=== PATIENT | male | born 1940 | race Caucasian/White ===

== ENCOUNTER 2022-01-07 12:00 | Day surgery (SDC) | payer OTHER ==
[2022-01-07 10:44] LABS: EOSINOPHILS # (AUTO) 0.2 X10'3 (0-0.9); LYMPHOCYTES # (AUTO) 1.1 X10'3 (1.1-4.8); LYMPHOCYTES % (AUTO) 22.4 % (21-51); MEAN CORPUSCULAR HEMOGLOBIN 28.6 PG (27.0-31.0); MEAN CORPUSCULAR HGB CONC 32.3 g/dL (33.0-36.5); MEAN CORPUSCULAR VOLUME 88.3 FL (78-98); MEAN PLATELET VOLUME 7.5 FL (7.4-10.4); MONOCYTES # (AUTO) 0.4 X10'3 (0-0.9); MONOCYTES % (AUTO) 8.4 % (2-12); NEUTROPHILS # (AUTO) 3.2 X10'3 (1.8-7.7); NEUTROPHILS % (AUTO) 65.2 % (42-75); PRE OP HEMATOCRIT 42.3 % (42.0-52.0); PRE OP HEMOGLOBIN 13.7 g/dL (14.0-17.9); PRE OP PLATELET COUNT 236 X10'3 (140-440); RED BLOOD COUNT 4.79 X10'6 (4.70-6.10); RED CELL DISTRIBUTION WIDTH 16.1 % (11.5-14.5)
[2022-01-07 10:52] LABS: ALBUMIN 3.5 G/DL (3.4-5.0); ALBUMIN/GLOBULIN RATIO 0.8 (1.1-1.5); ALKALINE PHOSPHATASE 45 IU/L (46-116); BLOOD UREA NITROGEN 16 MG/DL (7-18); BUN/CREATININE RATIO 14.5 (5.4-32.0); CHLORIDE 105 MMOL/L (99-107); PRE OP ALT 26 U/L (30-65); PRE OP ANION GAP 9 (8-16); PRE OP AST 39 U/L (10-37); PRE OP BILIRUB, TOTAL 0.5 MG/DL (0.0-1.0); PRE OP GLUCOSE 118 MG/DL (70-104); PRE OP POTASSIUM 4.7 MMOL/L (3.4-5.1); PRE OP SODIUM 141 MMOL/L (135-145); TOTAL CARBON DIOXIDE 27.4 MMOL/L (24-32); TOTAL PROTEIN 7.8 G/DL (6.4-8.2); eGFR 64 ML/MIN
[2022-01-07 10:57] LABS: HEMOGLOBIN A1C 6.6 % (4.5-6.2)
[~2022-01-07 12:00] MED LIST: AMLO2.5T2 PO; CETI10TA19 PO; GABA-534 PO; LISI20TA28 PO; METF-900 PO; ROSU40TA PO
== END 2022-01-07 23:59 | disposition home or self-care (01) ==
LOC: PRE-OP 12:00 → EDSTATUS 01-14 12:15
PROVIDERS: ATTEND Orthopaedic Surgery
DX: Z01.818 Encounter for other preprocedural examination (principal); M19.011 Primary osteoarthritis, right shoulder; E11.9 Type 2 diabetes mellitus without complications; G47.30 Sleep apnea, unspecified; I10 Essential (primary) hypertension; Z79.899 Other long term (current) drug therapy; Z87.891 Personal history of nicotine dependence; Z98.890 Other specified postprocedural states; Z79.84 Long term (current) use of oral hypoglycemic drugs
CPT/HCPCS: 36415; 80053; 83036; 85025; 86885; 86900; 86901; 87081

== ENCOUNTER 2023-09-15 09:36 | Inpatient (IN) | payer OTHER, MEDICARE ==
[2023-09-06 14:47] LABS: BASOPHILS # (AUTO) 0.1 X10'3 (0-0.2); BASOPHILS % (AUTO) 0.9 % (0-1); EOSINOPHILS # (AUTO) 0.3 X10'3 (0-0.9); EOSINOPHILS % (AUTO) 4.9 % (0-6); LYMPHOCYTES # (AUTO) 1.2 X10'3 (1.1-4.8); LYMPHOCYTES % (AUTO) 21.4 % (21-51); MEAN CORPUSCULAR HEMOGLOBIN 29.8 PG (27.0-31.0); MEAN CORPUSCULAR VOLUME 90.2 FL (78-98); MEAN PLATELET VOLUME 7.5 FL (7.4-10.4); MONOCYTES # (AUTO) 0.3 X10'3 (0-0.9); MONOCYTES % (AUTO) 6.2 % (2-12); NEUTROPHILS # (AUTO) 3.8 X10'3 (1.8-7.7); NEUTROPHILS % (AUTO) 66.6 % (42-75); PRE OP HEMOGLOBIN 14.2 g/dL (14.0-17.9); PRE OP PLATELET COUNT 222 X10'3 (140-440); PRE OP WHITE BLOOD COUNT 5.6 10'3 (4.8-10.8); RED BLOOD COUNT 4.77 X10'6 (4.70-6.10); RED CELL DISTRIBUTION WIDTH 14.8 % (11.5-14.5)
[2023-09-06 14:53] LABS: ALBUMIN 3.9 G/DL (3.4-5.0); ALBUMIN/GLOBULIN RATIO 0.9 (1.1-1.5); ALKALINE PHOSPHATASE 45 IU/L (46-116); BLOOD UREA NITROGEN 24 MG/DL (7-18); CALCIUM 9.4 MG/DL (8.5-10.1); CHLORIDE 104 MMOL/L (99-107); CREATININE 1.33 MG/DL (0.60-1.10); PRE OP ALT 32 U/L (30-65); PRE OP ANION GAP 7 (8-16); PRE OP AST 34 U/L (10-37); PRE OP BILIRUB, TOTAL 0.4 MG/DL (0.0-1.0); PRE OP GLUCOSE 144 MG/DL (70-104); PRE OP SODIUM 139 MMOL/L (135-145); TOTAL CARBON DIOXIDE 28.3 MMOL/L (24-32); TOTAL PROTEIN 8.4 G/DL (6.4-8.2); eGFR 51 ML/MIN
[2023-09-06 16:13] LABS: HEMOGLOBIN A1C 6.2 % (4.5-6.2)
[2023-09-15] VITALS (25 sets, daily range): BP systolic 122–163; BP diastolic 65–113; PULSE 49–102; RESP 12–21; TEMP 97.6–98.1; O2SAT 94–99
[~2023-09-15] VITALS: Ht 175.3 cm; Wt 86.6 kg
[2023-09-15] MEDS: gabapentin 300mg capsule PO ONE (05:30)
[2023-09-15] MEDS: cefazolin 2gm/D5W 100mL 100 ML IV ONE (05:30)
[2023-09-15] MEDS: tranexamic acid inj. 1,000 MG in normal saline IV soln 100ML IV ONE (05:30)
[2023-09-15] MEDS: ipratropium 0.5 MG/2.5ML nebule NEB SCH (09:00)
[~2023-09-15 09:36] MED LIST changes: +ACET-1025 PO; +ALBU8HFA INH; +CLOB30CR11 TOP; +CYAN500T71 PO; +DEXTROSE 15 GM of carb/4 tabs (each vial/BOTTLE has 4 tablets) PO PRN; +DICL20GE; +EZET10TA6 PO; -GABA-534 PO; +GABA-535 PO; +HYDROmorphone 1 mg/ml syringe IV PRN; +OXYB5TAB21 PO; +TIOT18CA3 INH; +[UNRECOGNIZED DRUG - OTHER]; +acetaminophen 325mg tablet PO PRN; +albuterol 2.5 MG/3 ML nebule NEB PRN; +bisacodyl 10mg suppository rectal RC PRN; +dextrose 50%-water 50ml dispensing syringe IV PRN; +diphenhydrAMINE 25mg capsule PO PRN; +famotidine 20mg tablet PO ONE; +glucagon, human recombinant 1mg kit SUBCUT PRN; +insulin Lispro (HumaLOG) vial - multi-dose SQ SCH; +magnesium hydroxide 30ml (MOM) UD suspension PO PRN; +naloxone 0.4 mg/ml inj IV PRN; +ondansetron/PF 4mg/2ml inj IV PRN
[2023-09-15] MEDS ORDERED: fentaNYL/PF 50MCG/1 ML 2ML syringe IV PRN ×2 (11:00)
[2023-09-15] MEDS ORDERED: morphine 2 MG/ML inj. syringe IV PRN (11:00)
[2023-09-15] MEDS ORDERED: ROPIVAcaine 0.2% (10 MG/5 ML) BOLUS INJECTION INTERSCALE PRN (11:00)
[2023-09-15] MEDS ORDERED: ondansetron/PF 4mg/2ml inj IV PRN (11:00)
[2023-09-15] MEDS ORDERED: hydrALAZINE 20mg/ml inj. IV PRN (11:00)
[2023-09-15] MEDS ORDERED: labetalol 20mg/4ml (5mg/ml) syringe IV PRN (11:00)
[2023-09-15] MEDS ORDERED: morphine 4 MG/ML inj SYRINge IV PRN (11:00)
[2023-09-15] MEDS ORDERED: proCHLORperazine 10 MG/2 ml inj IV PRN (11:00)
[2023-09-15] MEDS ORDERED: proMETHazine 25mg rectal suppository RC PRN (11:00)
[2023-09-15] MEDS: celeCOXIB 100mg capsule PO ONE (12:03)
[2023-09-15] MEDS: metoclopramide 5 mg/ml inj IV ONE (12:04)
[2023-09-15] MEDS: acetaminophen 325mg tablet PO ONE (12:04)
[2023-09-15] MEDS: vancomycin 1,500 MG in NS 300ml IV soln IV ONE (12:05)
[2023-09-15] MEDS: ringers solution, lacted 1,000 ML IV SCH ×2 (12:06→15:43)
[2023-09-15] MEDS: famotidine 20mg tablet PO ONE (12:06)
[2023-09-15] MEDS ORDERED: epiNEPHrine 1 mg/ml inj ONE (12:26)
[2023-09-15] MEDS ORDERED: tranexamic acid 100mg/ml inj. ONE (12:26)
[2023-09-15] MEDS ORDERED: ketorolac trometh. 30mg/ml inj. ONE (12:26)
[2023-09-15] MEDS ORDERED: cloNIDine hcl/PF 100mcg/ml inj ONE (12:27)
[2023-09-15] MEDS ORDERED: ROPIVAcaine 0.5% (5mg/ml) 30ml vial ONE ×3 (12:27→13:43)
[2023-09-15] MEDS ORDERED: vancomycin 1,000mg inj ONE (12:27)
[2023-09-15] MEDS ORDERED: sevoflurane 250ml liquid IH ONE (13:03)
[2023-09-15] MEDS ORDERED: dexamethasone sod phosphate 10mg/ml inj ONE (13:03)
[2023-09-15] MEDS ORDERED: LIDOcaine 2% (20mg/ml) 5ml vial ONE (13:42)
[2023-09-15] MEDS ORDERED: propofol inj 20 ML IV ONE (13:42)
[2023-09-15] MEDS ORDERED: fentaNYL/PF 50MCG/1 ML 2ML syringe ONE ×2 (13:42→14:33)
[2023-09-15] MEDS ORDERED: ondansetron/PF 4mg/2ml inj ONE (13:43)
[2023-09-15] MEDS ORDERED: ePHEDrine 50MG/ML INJ. ONE (13:43)
[2023-09-15] MEDS: cloNIDine hcl/PF 100mcg/ml inj IJ ONE (14:24)
[2023-09-15] MEDS: ROPIVAcaine 0.5% (5mg/ml) 30ml vial IJ ONE (14:24)
[2023-09-15] MEDS: epiNEPHrine 1 mg/ml inj SQ ONE (14:25)
[2023-09-15] MEDS: vancomycin 1,000mg inj IVT ONE (14:26)
[2023-09-15] MEDS: ROPIVAcaine 0.2%/PF PUMP/bolus 545 ML INTERSCALE SCH (15:43)
[2023-09-15] MEDS: MESSAGE TO PHARMACY PO ONE (20:16)
[2023-09-15] MEDS: tranexamic acid inj. 860 MG in normal saline 100ml IV soln 91.4 ML IV ONE (20:18)
[2023-09-15] MEDS: insulin glargine (Lantus) pen - multi-dose SQ SCH (21:00)
[2023-09-15] MEDS: cefazolin 2gm/D5W 100mL 100 ML IV SCH (21:09)
[2023-09-15] MEDS: gabapentin 300mg capsule PO SCH (21:09)
[2023-09-15] MEDS: ascorbic acid 500mg tablet PO SCH (21:09)
[2023-09-15] MEDS: sennosides 8.6mg tablet PO SCH (21:10)
[2023-09-15] MEDS: potassium cl 20mEq in 1/2 NS 1,000 ML IV SCH (21:19)
[2023-09-15] MEDS: VANCOMYCIN 1,500MG inj. 1,500 MG in normal saline 500ml IV soln 300 ML IV SCH (22:23)
[2023-09-16] VITALS (13 sets, daily range): BP systolic 135–148; BP diastolic 69–79; PULSE 62–80; RESP 16–18; TEMP 97.6–98.4; O2SAT 91–97
[2023-09-16] MEDS: HYDROcodone/acetaminophen 10/325mg tab PO PRN ×2 (06:00→11:04)
[2023-09-16 06:54] LABS: BASOPHILS % (AUTO) 0.1 % (0-1); EOSINOPHILS % (AUTO) 0 % (0-6); HEMATOCRIT 38.2 % (42.0-52.0); HEMOGLOBIN 12.6 g/dl (14.0-17.9); LYMPHOCYTES # (AUTO) 0.5 X10'3 (1.1-4.8); LYMPHOCYTES % (AUTO) 6.7 % (21-51); MEAN CORPUSCULAR HEMOGLOBIN 29.6 PG (27.0-31.0); MEAN CORPUSCULAR HGB CONC 33.1 g/dL (33.0-36.5); MEAN CORPUSCULAR VOLUME 89.3 FL (78-98); MEAN PLATELET VOLUME 7.8 FL (7.4-10.4); MONOCYTES # (AUTO) 0.3 X10'3 (0-0.9); MONOCYTES % (AUTO) 4.6 % (2-12); NEUTROPHILS # (AUTO) 6.7 X10'3 (1.8-7.7); NEUTROPHILS % (AUTO) 88.6 % (42-75); PLATELET COUNT 182 X10'3 (140-440); RED BLOOD COUNT 4.27 X10'6 (4.70-6.10); WHITE BLOOD COUNT 7.6 X10'3 (4.5-11.0)
[2023-09-16 07:29] LABS: ANION GAP 9 (8-16); CHLORIDE 106 MMOL/L (99-107); POTASSIUM 4.7 MMOL/L (3.5-5.1); SODIUM 143 MMOL/L (135-145); TOTAL CARBON DIOXIDE 28.4 MMOL/L (24-32)
[2023-09-16] MEDS: aspirin 325mg tablet PO SCH (10:07)
[2023-09-16] MEDS: cetirizine 10mg tablet PO SCH (10:08)
[2023-09-16] MEDS: multivitamins, therapeutics tablet PO SCH (10:09)
[2023-09-16] MEDS: lisinopril 20mg tablet PO SCH (10:09)
[2023-09-16] MEDS: amLODIPine 2.5mg tablet PO SCH (10:10)
[2023-09-16] MEDS: ezetimibe 10mg tablet PO SCH (10:11)
[2023-09-16] MEDS: oxybutynin 5mg tablet PO SCH (10:11)
[2023-09-16] MEDS: ROSUVASTATIN CALCIUM 5 MG TABLET PO SCH (11:09)
[2023-09-16] MEDS: celeCOXIB 100mg capsule PO SCH (21:16)
[2023-09-16] MEDS: HYDROmorphone inj. 0.5 MG/0.5 ML DISP.SYRIN IV PRN (21:34)
[2023-09-17] VITALS (8 sets, daily range): BP systolic 145; BP diastolic 76; PULSE 72–98; RESP 16–20; TEMP 98.8; O2SAT 92–94
[2023-09-17 06:27] LABS: BASOPHILS % (AUTO) 0.4 % (0-1); EOSINOPHILS # (AUTO) 0.1 X10'3 (0-0.9); EOSINOPHILS % (AUTO) 1.3 % (0-6); HEMATOCRIT 35.4 % (42.0-52.0); HEMOGLOBIN 11.8 g/dl (14.0-17.9); LYMPHOCYTES # (AUTO) 1.2 X10'3 (1.1-4.8); LYMPHOCYTES % (AUTO) 14.4 % (21-51); MEAN CORPUSCULAR HEMOGLOBIN 30.1 PG (27.0-31.0); MEAN CORPUSCULAR HGB CONC 33.4 g/dL (33.0-36.5); MEAN CORPUSCULAR VOLUME 90.1 FL (78-98); MEAN PLATELET VOLUME 7.5 FL (7.4-10.4); MONOCYTES # (AUTO) 0.8 X10'3 (0-0.9); MONOCYTES % (AUTO) 9.2 % (2-12); NEUTROPHILS # (AUTO) 6.2 X10'3 (1.8-7.7); NEUTROPHILS % (AUTO) 74.7 % (42-75); PLATELET COUNT 185 X10'3 (140-440); RED BLOOD COUNT 3.93 X10'6 (4.70-6.10); RED CELL DISTRIBUTION WIDTH 14.8 % (11.5-14.5); WHITE BLOOD COUNT 8.4 X10'3 (4.5-11.0)
== END 2023-09-17 13:50 | disposition home or self-care (01) | DRG 483 ==
LOC: PAS 09:36 → ED HOLD 09:40 → ORTHO 4S 17:47
PROVIDERS: ADMIT Orthopaedic Surgery; ATTEND Orthopaedic Surgery
PROC: 3E0T3BZ Introduction of Anesthetic Agent into Peripheral Nerves and Plexi, Percutaneous Approach (ICD-10-PCS; 2023-09-15)
PROC: 0RRJ00Z Replacement of Right Shoulder Joint with Reverse Ball and Socket Synthetic Substitute, Open Approach (ICD-10-PCS; principal; 2023-09-15 13:03)
DX: S46.011A Strain of muscle(s) and tendon(s) of the rotator cuff of right shoulder, initial encounter (principal); Z79.899 Other long term (current) drug therapy
CPT/HCPCS: 36415; 71046; 73020; 80051; 80053; 82948; 83036; 85025; 86885; 86900; 86901; 87081; 94640; 94760; 97110; 97116; 97161; 97530; A4565; A4615; A4618; A6253; A6449; A7000; C1776; G0378; J0171; J0690; J0735; J1100; J1170; J1815; J1885; J2405; J2704; J2765; J2795; J3010; J3370; J3480; J3490; J7040; J7120